=== PATIENT | female | born 1990 | race Caucasian/White ===

== ENCOUNTER 2019-12-26 09:43 | Emergency (ER) | payer SELFPAY ==
[2019-12-26 09:47] VITALS: BP 147/105; PULSE 61; RESP 16; TEMP 36.6; O2SAT 100; BMI 23.3
--- NOTE | 2019-12-26 09:47 | W.ED.URI ---
HPI - URI/Sore Throat General: Chief Complaint: Shortness of Breath/Dyspnea Stated Complaint: BREATHING PROBLEMS Time Seen by Provider: 12/26/19 09:46 Source: patient Mode of arrival: ambulatory Limitations: no limitations History of Present Illness: HPI Narrative: Patient comes in today with concerns of the inhalation of mold and sore throat. Patient states that for the past 2 to 3 days she has had some problems with a sore throat and a cough. Patient is also felt more tired and worn out. Patient thought she may have inhaled some mold while working in old house and planting her garden. Patient also has had some nausea and thinks she may be . Patient appears well. Patient appears in no acute distress. MD elicited complaint: cough and sore throat Associated symptoms: Reports nausea Review of Systems General: Reports: 10 or more systems reviewed and unremarkable except in HPI and below ENMT: Reports: throat pain Resp: Reports: non-productive cough GI: Reports: nausea PFSH ED PFSH: Social History Smoking and tobacco status: never smoked Physical Exam Const: COMMON NORMALS: no apparent distress and oriented x3 GENERAL APPEARANCE: cooperative HENMT: COMMON NORMALS: normocephalic, external ears normal, EAC's normal, TM's normal bilaterally and external nose normal HEAD & SCALP: normal to inspection and normocephalic FACE & SINUS: normal facial exam NOSE: external nose normal GENERAL EAR: hearing not grossly impaired EXTERNAL EAR: Yes external ears normal EXTERNAL AUDITORY CANAL: EAC's normal TYMPANIC MEMBRANE: TM's normal bilaterally MOUTH: oral and palatal mucosa normal THROAT: posterior oropharynx normal Eye: COMMON NORMALS: PERRL and EOMs intact bilaterally PUPIL: Yes PERRL Neck/C-Spine: COMMON NORMALS: full ROM and no lymphadenopathy Lymph: LYMPHATIC: no lymphedema noted Chest: COMMONS NORMALS: inspection of chest normal and palpation of chest normal Resp: COMMON NORMALS: normal respiratory effort and clear to auscultation bilaterally AUSCULTATION: clear to auscultation bilaterally Cardio: COMMON NORMALS: regular rate and regular rhythm RATE: regular rate RHYTHM: regular rhythm GI: COMMON NORMALS: normal to inspection, nondistended, normoactive bowel sounds and non-tender : COMMON NORMALS: Yes no CVA tenderness BLADDER/KIDNEY EXAM: Yes no CVA tenderness Back/Pelvis: COMMON NORMALS: no CVA tenderness and thoracic and lumbar spine normal to inspection Extremity: COMMON NORMALS: normal to inspection GENERAL: No edema Neuro: COMMON NORMALS: oriented x3, moves all extremities and no focal motor deficits Psych: COMMON NORMALS: mental status grossly normal and cooperative Skin: COMMON NORMALS: no rashes or lesions noted GENERAL SKIN EXAM: no rashes or lesions noted Course Vital Signs: Vital signs: Vital Signs Temperature 98 F 12/26/19 09:47 Pulse Rate 65 12/26/19 11:00 Respiratory Rate 16 12/26/19 11:00 Blood Pressure 152/105 12/26/19 11:00 Pulse Oximetry 97 12/26/19 11:00 MDM - URI/Sore Throat MDM Narrative: Medical decision making narrative: Patient comes in today with concerns of sore throat and nausea. Patient was worried that she may be exposed to mold that has caused her to get a respiratory infection and has also been concerned about being . Exam notes of postnasal drip but otherwise normal exam. Differential diagnosis includes influenza, strep pharyngitis, allergic rhinitis, postnasal drip, vasomotor rhinitis, urinary tract infection, . Urinalysis was clear, test was negative, influenza a and strep test were negative. Reviewed exam with patient with recommendations for treatment for postnasal drip with Flonase and Claritin. Patient reports understanding and agreed to plan. Lab Data: Labs: Lab Results 12/26/19 12/26/19 12/26/19 Range/Units 09:05 09:05 09:05 Urine Color Straw (Yellow) Urine Appearance Clear (CLEAR) Urine pH 6 (5-7) Ur Specific Gravit y 1.010 (1.005-1.030) Urine Protein Neg (Negative) Urine Glucose (UA) Norm (Normal) Urine Ketones Negative (Negative) Urine Blood Neg (Negative) Urine Nitrate Negative (Negative) Urine Bilirubin Neg (NEGATIVE) Urine Urobilinogen Norm (Negative) mg/dL Ur Leukocyte Merly ase Negative (Negative) Urine HCG, Qual Negative (Negative) Influenza Type A A g (Negative) POC Influenza B Ag (Negative) Group A Strep Rapi d Negative (Negative) 12/26/19 Range/Units 09:05 Urine Color (Yellow) Urine Appearance (CLEAR) Urine pH (5-7) Ur Specific Gravit y (1.005-1.030) Urine Protein (Negative) Urine Glucose (UA) (Normal) Urine Ketones (Negative) Urine Blood (Negative) Urine Nitrate (Negative) Urine Bilirubin (NEGATIVE) Urine Urobilinogen (Negative) mg/dL Ur Leukocyte Merly ase (Negative) Urine HCG, Qual (Negative) Influenza Type A A g Negative (Negative) POC Influenza B Ag Negative (Negative) Group A Strep Rapi d (Negative) Discharge Plan Discharge Patient Disposition: Home, Self-Care Clinical Impression: Post-nasal drip, Nausea Condition: Stable Prescriptions: New Flonase Allergy Relief 50 mcg/actuation spray,suspension 1 spray INTRANASAL BID PRN (Reason: nasal congestion) Qty: 15.8 RF: 0 loratadine 10 mg tablet 10 mg PO DAILY Qty: 30 RF: 0 Discharge Orders: Discharge Order (Routine); Ordered 12/26/19 Ordered By: Arturo Cardoso Discharge Diet: Usual diet Discharge Activity: Increase activity as tolerated Patient Instructions: Pharyngitis (ED) Activity Restrictions/Additional Instructions: Drink plenty of fluids Medications as directed Repeat test in two weeks as needed Follow-up with primary care in one week Return to ER for high fever or new concerns Coding Level of Care Code ED Chemical Strength Tester for Chg Fwd Exam Comprehensive
[2019-12-26 09:53] VITALS: O2SAT 100
[2019-12-26 10:12] LABS: Add Urine Microscopic? NO
[2019-12-26 10:21] LABS: Urine Appearance Clear (CLEAR); Urine Color Straw (Yellow)
[2019-12-26 10:22] LABS: Bilirubin Urine Neg (NEGATIVE); Blood Urine Neg (Negative); Glucose Urine UA Norm (Normal); Ketones Urine Negative (Negative); Leukocyte Esterase Urine Negative (Negative); Nitrate Urine Negative (Negative); Protein Urine Neg (Negative); Urobilinogen Urine Norm (Negative); pH Urine 6 (5-7)
[2019-12-26 10:23] LABS: Rapid Strep A Test Negative (Negative)
[2019-12-26 10:34] LABS: Influenza A by IFA Negative (Negative); Influenza B by IFA Negative (Negative)
[2019-12-26 11:00] VITALS: BP 152/105; PULSE 65; RESP 16; O2SAT 97
== END 2019-12-26 11:00 | disposition home or self-care (01) ==
LOC: ER 13:13
PROVIDERS: Emergency Provider Nurse Practitioner Family
DX: R09.82 Postnasal drip (principal); R11.0 Nausea
CPT/HCPCS: 12345; 81003; 81025; 87081; 87804; 87880; 99283

== ENCOUNTER 2019-12-27 10:43 | Emergency (ER) | payer SELFPAY ==
[2019-12-27 11:22] VITALS: BP 142/112; PULSE 76; RESP 16; TEMP 37; O2SAT 99; BMI 23.1
--- NOTE | 2019-12-27 11:31 | PC.NURSE ---
During triage the Suicide risk assessment form did not pull. Patient denies hopelessness, increased depression, SI/HI. Patient has c/o insomnia and manic episode lasting about 1 week now.
[2019-12-27 12:20] LABS: Basophils % 0.4 %; Eosinophils # 0.2 10^3/uL (0.0-0.8); Eosinophils % 2.1 %; Hematocrit 41.1 % (37.0-47.0); Hemoglobin 13.8 g/dL (11.5-15.3); Lymphocytes # 2.2 10^3/uL (0.8-4.8); Mean Corpuscular HGB Conc 33.6 g/dL (30.0-36.0); Mean Corpuscular Hemoglobin 30.6 pg (28.0-34.0); Mean Corpuscular Volume 91.1 fL (81-99); Mean Platelet Volume 8.8 fL (7.4-10.4); Monocytes # 0.7 10^3/uL (0.2-0.9); Monocytes % 6.1 %; Neutrophils # 7.9 10^3/uL (1.8-7.7); Neutrophils % 71.2 %; Nucleated Red Blood Cells % 0 %; Platelet Count 380 10^3/cmm (130-400); Red Blood Count 4.51 10^6/uL (4.1-5.3); Red Cell Distribution Width 12.4 % (12.1-15.1)
[2019-12-27 12:31] LABS: HCG, Serum Qual Negative (Negative)
[2019-12-27 12:39] LABS: Alanine Aminotransferase 6 U/L (0-33); Albumin Level 4.4 g/dL (3.5-5.2); Alkaline Phosphatase 66 IU/L (35-105); Aspartate Amino Transferase 20 U/L (0-32); Blood Urea Nitrogen 15 mg/dL (6-20); Calcium 11.2 mg/dL (8.5-10.5); Carbon Dioxide 27 mmol/L (22-29); Chloride 98 mmol/L (98-107); Globulin 3.5 g/dL (1.3-4.6); Glomerular Filtration Rate 83.7 mL/min (90-130); Glucose 141 mg/dL (65-115); Osmolality Calculated 281 mOsm/kg (285-295); Sodium 136 mmol/L (136-145); Total Bilirubin 0.2 mg/dL (0.15-1.2); Total Protein 7.9 g/dL (6.6-8.7)
[2019-12-27 12:49] LABS: Acetaminophen < 5.0 ug/mL (10-30); Alcohol Level < 10 mg/dL (0-10); Salicylate < 0.3 mg/dL (3-10)
[2019-12-27 13:21] LABS: Amphetamines Screen Urine Negative (Negative); Barbiturates Screen Urine Negative (Negative); Benzodiazepines Screen Urine Negative (Negative); Cocaine Screen Urine Negative (Negative); Opiate Screen Urine Negative (Negative); PCP Screen Urine Negative (Negative); THC Screen Urine Negative (Negative)
--- NOTE | 2019-12-27 13:34 | ED_ITS ---
Entered by Ann Keys, acting as scribe for Dec 27, 2019 10:43 HPI - Psych General: Chief Complaint: Psychiatric Symptoms Stated Complaint: MHE Time Seen by Provider: 12/27/19 13:32 Source: patient Mode of arrival: ambulatory Limitations: no limitations History of Present Illness: HPI Narrative: 29 yo Female presents to ED with complaint of not sleeping and garo. Pt states that she hasn't been able to sleep and she thought that was because of the full owens. Pt states that she also had mold in her room and had to clean it which caused her respiratory symptoms. Pt states that she has been manic and has bipolar. Pt states that she started taking Seroquel for her bipolar disorder last night. Pt states that this was prescribed by her doctor in [place], [place]. Pt states that she just moved here and doesn't have a local psychiatrist or counselor yet and she wanted to get checked out to make sure that everything was ok and to try to find out about local doctors. MD complaint: other (manic) Onset (ago): day(s) Duration: constant History of same: Yes Relieving factors: none Exacerbating factors: none Context: new medication(s) Associated psychiatric symptoms: other (garo) Associated symptoms: Reports other (garo) Treatments prior to arrival: none Review of Systems General: Reports: other (negative unless marked) Const: Denies: fever, chills, body aches, fatigue, malaise or diaphoresis Eyes: Denies: change in vision or blurry vision ENMT: Denies: throat pain, painful swallowing, hoarseness, ear pain, ear discharge, Change in hearing or nasal discharge Card: Denies: chest pain, palpitations, irregular heart rhythm, syncope, pre- syncope, shortness of breath on exertion or shortness of breath when lying down Resp: Denies: shortness of breath, productive cough, non-productive cough, wheezing, coughing up blood or chest congestion GI: Denies: abdominal pain, nausea, vomiting, vomiting blood, coffee grounds in vomit, diarrhea, constipation, cramping, blood in stool or black tarry stool : Denies: flank pain, painful urination, urinary frequency, urinary urgency, decreased urine ouput, urinary incontinence or blood in urine Musc: Denies: neck pain, back pain, extremity pain, extremity swelling, joint pain, joint swelling, joint warmth or joint stiffness Skin/Breast: Denies: rash, skin tenderness or yellow skin Neuro: Denies: headache, numbness in extremities, weakness in extremities, changes in sensation, lack of coordination, difficulty walking, dizziness, vertigo or confusion Endo: Denies: excessive thirst, tired all the time, cold intolerance, excessive sweating, flushing or hot flashes Osei/Lymph: Denies: easy bruising, easy bleeding, petechiae or enlarged lymph nodes All/Imm: Denies: hives, throat swelling, tongue swelling, facial swelling or acute wheezing PFSH ED PFSH: Medical History (Updated 12/27/19 @ 13:51 by Harper Santamaria) Bipolar disorder Social History Smoking and tobacco status: never smoked Female Reproductive History: Date of last menstrual period: 12/16/19 Physical Exam Const: COMMON NORMALS: no apparent distress, oriented x3, no limitations, healthy appearing and well nourished EXAM LIMITATIONS: no altered mental status GENERAL APPEARANCE: cooperative, well kempt and well developed ORIENTATION/CONSCIOUSNESS: Yes awake HENMT: COMMON NORMALS: normocephalic, head/scalp atraumatic, hearing grossly normal bilaterally, external ears normal, EAC's normal, external nose normal and moist oral mucous membranes HEAD & SCALP: normal to inspection, normocephalic and atraumatic FACE & SINUS: normal facial exam and face symmetric NOSE: external nose normal and nares normal EXTERNAL EAR: Yes external ears normal EXTERNAL AUDITORY CANAL: EAC's normal MOUTH: oral and palatal mucosa normal and tongue normal Eye: COMMON NORMALS: PERRL, EOMs intact bilaterally, conjunctivae normal and no scleral icterus GENERAL EYE: normal appearance of both eyes and normal light reflex CONJUNCTIVA: Yes conjunctivae normal SCLERA: sclerae normal CORNEA: Yes corneas normal PUPIL: Yes PERRL DIRECT OPHTHALMOSCOPY: Yes normal light reflex Neck/C-Spine: COMMON NORMALS: full ROM, no lymphadenopathy, supple, no meningeal signs and no JVD GENERAL: Yes normal visual inspection and Yes trachea midline CERVICAL SPINE: Yes cervical ROM normal Chest: COMMONS NORMALS: inspection of chest normal and palpation of chest normal Resp: COMMON NORMALS: normal respiratory effort, no retractions, no use of accessory muscles and clear to auscultation bilaterally EFFORT & INSPECTION: Yes able to speak in complete sentences AUSCULTATION: clear to auscultation bilaterally Cardio: COMMON NORMALS: no JVD, regular rate, regular rhythm, S1 normal heart sound, S2 normal heart sound, no gallops, no clicks, no murmurs and no rub JUGULAR VENOUS DISTENTION: no JVD RATE: regular rate RHYTHM: regular rhythm HEART SOUNDS: S1 normal and S2 normal GI: COMMON NORMALS: soft to palpation, non-tender, no hepatosplenomegaly and no masses INSPECTION: Yes normal to inspection PALPATION: Yes soft and Yes no hepatosplenomegaly : COMMON NORMALS: Yes no CVA tenderness BLADDER/KIDNEY EXAM: Yes no CVA tenderness Back/Pelvis: COMMON NORMALS: no CVA tenderness, thoracic and lumbar spine normal to inspection, no thoracic nor lumbar tenderness and thoraco-lumbar ROM normal Extremity: COMMON NORMALS: normal to inspection, full ROM, normal capillary refill, no joint enlargement, no clubbing, cyanosis or edema and no calf tenderness Neuro: COMMON NORMALS: oriented x3, CN's II-XII intact bilaterally, moves all extremities, no focal motor deficits and no sensory deficits noted MENINGEAL SIGNS: Yes no meningeal signs Psych: COMMON NORMALS: mental status grossly normal, thought process normal, cooperative, affect normal, speech normal and activity/motor behavior normal APPEARANCE: Yes well kempt SPEECH: Yes normal speech THOUGHT PROCESS: normal thought process Skin: COMMON NORMALS: no rashes or lesions noted, skin turgor normal, no jaundice, no petechiae and no mottling GENERAL SKIN EXAM: no rashes or lesions noted and turgor normal MDM - Psych MDM Narrative: Medical decision making narrative: The case was reviewed with Dr. Aragon. He recommends the patient stopping Seroquel and should take Haldol 2.5 mg twice daily until she can be seen by behavioral health clinic here in [place]. The patient agrees with this plan. Otherwise I see no sign of acute psychosis, depression, anxiety, or suicidal/homicidal ideation. The patient's calcium is slightly elevated which she states is a problem that she is had in the past. She understands that she will need to get this rechecked. I do not believe hypercalcemia is contributing to any of her symptoms here today. Lab Data: Attestation: I reviewed the patient's lab results. Labs: Lab Results 12/27/19 12/27/19 12/27/19 Range/Units 12:09 12:09 12:09 WBC 11.0 H (4.0-10.0) 10^3/ uL RBC 4.51 (4.1-5.3) 10^6/u L Hgb 13.8 (11.5-15.3) g/dL Hct 41.1 (37.0-47.0) % MCV 91.1 (81-99) fL MCH 30.6 (28.0-34.0) pg MCHC 33.6 (30.0-36.0) g/dL RDW 12.4 (12.1-15.1) % Plt Count 380 (130-400) 10^3/c mm MPV 8.8 (7.4-10.4) fL Neut % (Auto) 71.2 % Lymph % (Auto) 20.0 % Randolph % (Auto) 6.1 % Eos % (Auto) 2.1 % Baso % (Auto) 0.4 % Neut # (Auto) 7.9 H (1.8-7.7) 10^3/u L Lymph # (Auto) 2.2 (0.8-4.8) 10^3/u L Randolph # (Auto) 0.7 (0.2-0.9) 10^3/u L Eos # (Auto) 0.2 (0.0-0.8) 10^3/u L Baso # (Auto) 0.0 (0.0-0.1) 10^3/u L Nucleated RBC % (a uto) 0 % Nucleated RBCs # 0.0 /100WBC Sodium 136 (136-145) mmol/L Potassium 5.0 (3.5-5.1) mmol/L Chloride 98 (98-107) mmol/L Carbon Dioxide 27 (22-29) mmol/L Anion Gap 16.0 (5-19) BUN 15 (6-20) mg/dL Creatinine 0.8 (0.5-0.9) mg/dL GFR Calculation 83.7 L (90-130) mL/min Glucose 141 H (65-115) mg/dL Calculated Osmolal ity 281 L (285-295) mOsm/k g Calcium 11.2 H (8.5-10.5) mg/dL Total Bilirubin 0.2 (0.15-1.2) mg/dL AST 20 (0-32) U/L ALT 6 (0-33) U/L Alkaline Phosphata se 66 (35-105) IU/L Total Protein 7.9 (6.6-8.7) g/dL Albumin 4.4 (3.5-5.2) g/dL Globulin 3.5 (1.3-4.6) g/dL HCG, Qual Negative (Negative) Salicylates < 0.3 L (3-10) mg/dL Urine Opiates Scre en (Negative) ng/mL Acetaminophen < 5.0 L (10-30) ug/mL Ur Barbiturates Sc reen (Negative) ng/mL Ur Phencyclidine S crn (Negative) ng/mL Ur Amphetamines Sc reen (Negative) ng/mL U Benzodiazepines Scrn (Negative) ng/mL Urine Cocaine Scre en (Negative) ng/mL U Marijuana (THC) Screen (Negative) ng/mL Ethyl Alcohol < 10 (0-10) mg/dL 12/27/19 Range/Units 12:50 WBC (4.0-10.0) 10^3/ uL RBC (4.1-5.3) 10^6/u L Hgb (11.5-15.3) g/dL Hct (37.0-47.0) % MCV (81-99) fL MCH (28.0-34.0) pg MCHC (30.0-36.0) g/dL RDW (12.1-15.1) % Plt Count (130-400) 10^3/c mm MPV (7.4-10.4) fL Neut % (Auto) % Lymph % (Auto) % Randolph % (Auto) % Eos % (Auto) % Baso % (Auto) % Neut # (Auto) (1.8-7.7) 10^3/u L Lymph # (Auto) (0.8-4.8) 10^3/u L Randolph # (Auto) (0.2-0.9) 10^3/u L Eos # (Auto) (0.0-0.8) 10^3/u L Baso # (Auto) (0.0-0.1) 10^3/u L Nucleated RBC % (a uto) % Nucleated RBCs # /100WBC Sodium (136-145) mmol/L Potassium (3.5-5.1) mmol/L Chloride (98-107) mmol/L Carbon Dioxide (22-29) mmol/L Anion Gap (5-19) BUN (6-20) mg/dL Creatinine (0.5-0.9) mg/dL GFR Calculation (90-130) mL/min Glucose (65-115) mg/dL Calculated Osmolal ity (285-295) mOsm/k g Calcium (8.5-10.5) mg/dL Total Bilirubin (0.15-1.2) mg/dL AST (0-32) U/L ALT (0-33) U/L Alkaline Phosphata se (35-105) IU/L Total Protein (6.6-8.7) g/dL Albumin (3.5-5.2) g/dL Globulin (1.3-4.6) g/dL HCG, Qual (Negative) Salicylates (3-10) mg/dL Urine Opiates Scre en Negative (Negative) ng/mL Acetaminophen (10-30) ug/mL Ur Barbiturates Sc reen Negative (Negative) ng/mL Ur Phencyclidine S crn Negative (Negative) ng/mL Ur Amphetamines Sc reen Negative (Negative) ng/mL U Benzodiazepines Scrn Negative (Negative) ng/mL Urine Cocaine Scre en Negative (Negative) ng/mL U Marijuana (THC) Screen Negative (Negative) ng/mL Ethyl Alcohol (0-10) mg/dL Discharge Plan Discharge Patient Disposition: Home, Self-Care Clinical Impression: Bipolar disorder Qualifiers: Active/Remission status: currently active Current bipolar episode type: manic Current episode severity: mild Qualified Code(s): F31.11 - Bipolar disorder, current episode manic without psychotic features, mild Condition: Stable Prescriptions: No Action Flonase Allergy Relief 50 mcg/actuation spray,suspension 1 spray INTRANASAL BID PRN (Reason: nasal congestion) Qty: 15.8 RF: 0 loratadine 10 mg tablet 10 mg PO DAILY Qty: 30 RF: 0 Discharge Orders: Discharge Order (Routine); Ordered 12/27/19 Ordered By: Harper Santamaria Referrals: Renetta Donovan DO [Physician] - 1-3 days [facility], [Staff Physician] - 1-3 days Discharge Diet: Advance as tolerated Discharge Activity: Increase activity as tolerated Patient Instructions: Bipolar Disorder (ED) Activity Restrictions/Additional Instructions: Please return to the ER immediately for any of the signs or symptoms listed on your discharge instruction sheets, worsening/changing of your symptoms, you are not getting better as quickly as expected, or for ANY other cause or concerns. Take your medications as I have prescribed. Stop the Seroquel that you were previously given. Be certain in contact [facility] here in [place] or in [place] for an appointment to be seen as soon as possible. Again stop the Seroquel. Take the Haldol that I have prescribed you and be certain to return here if you do develop symptoms of wanting to hurt yourself or kill yourself or do not feel you can handle your manic symptoms. Be certain to follow-up with Dr. Donovan or the primary care physician of your choice to have your calcium rechecked as well. Coding Level of Care Code ED Telegraph Printer Mechanic for Chg Fwd Exam Comprehensive The documentation recorded by the Ludmila walton Carmen, accurately reflects the service I personally performed and the decisions made by , Harper Santamaria Dec 27, 2019 10:43
[2019-12-27 13:54] VITALS: O2SAT 98
[2019-12-27 13:58] VITALS: BP 147/103; PULSE 72; RESP 19; O2SAT 97
== END 2019-12-27 14:04 | disposition home or self-care (01) ==
PROVIDERS: Physician Assistant; Emergency Provider Emergency Medicine
DX: F31.9 Bipolar disorder, unspecified (principal)
CPT/HCPCS: 12345; 36415; 80053; 80307; 84703; 85025; 99282; 99283

== ENCOUNTER 2019-12-29 13:39 | Emergency (ER) | payer SELFPAY ==
[2019-12-29 13:42] VITALS: BP 157/114; PULSE 90; RESP 16; TEMP 36.4; O2SAT 100; BMI 20.5
--- NOTE | 2019-12-29 14:07 | ED_ITS ---
HPI - General Adult General: Chief complaint: General Medical Stated complaint: MHE Time Seen by Provider: 12/29/19 13:52 History of Present Illness: HPI narrative: Patient comes in her complain about sore throat and fever. Says she aches all over. Patient seen here couple days ago diagnosed with bipolar disorder which she had been on Seroquel for that Dr. Aragon evaluated her and started her on Haldol 2.5 mg twice daily. Her gentleman friend that she is with said they been together about a month living in [place] about 70 people and the report is that they do not know how to handle her anymore she is having episodes of hallucinations and not making sense of what she is saying. There is a person here from the [facility] who was 1 of their medical experts that does not have training in medical and said he might fill out some paper states and get her committed.. Patient just moved here from [place] about 4 months ago and she was fine up to about a month ago is what her significant other says denies SI or HI Associated symptoms: Deny chest pain, dyspnea, headache(s), nausea, rash or vomiting Review of Systems Const: Denies: fever, chills or body aches Eyes: Denies: change in vision or blurry vision ENMT: Denies: throat pain or nasal congestion Card: Denies: chest pain or shortness of breath on exertion Resp: Denies: shortness of breath, productive cough or non-productive cough GI: Denies: abdominal pain, nausea or vomiting Musc: Denies: extremity pain Skin/Breast: Denies: rash Neuro: Denies: headache Psych: Reports: mood swings, sleeping less and tactile hallucinations; Denies: anxiety, depression, suicidal ideation or homicidal ideation Osei/Lymph: Denies: easy bruising PFSH ED PFSH: Medical History (Updated 12/27/19 @ 13:51 by Harper Santamaria) Bipolar disorder Social History Smoking and tobacco status: never smoked Female Reproductive History: Date of last menstrual period: 12/09/19 Physical Exam Const: COMMON NORMALS: no apparent distress, average body habitus and oriented x3 HENMT: COMMON NORMALS: normocephalic HEAD & SCALP: normal to inspection and normocephalic FACE & SINUS: normal facial exam Eye: COMMON NORMALS: conjunctivae normal GENERAL EYE: normal appearance of both eyes CONJUNCTIVA: Yes conjunctivae normal Neck/C-Spine: COMMON NORMALS: no JVD Chest: COMMONS NORMALS: inspection of chest normal Resp: COMMON NORMALS: normal respiratory effort and clear to auscultation bilaterally AUSCULTATION: clear to auscultation bilaterally Cardio: COMMON NORMALS: no JVD, regular rate and regular rhythm RATE: regular rate RHYTHM: regular rhythm GI: COMMON NORMALS: normal to inspection, nondistended, normoactive bowel sounds Extremity: COMMON NORMALS: normal to inspection and full ROM Neuro: COMMON NORMALS: oriented x3 Psych: COMMON NORMALS: mental status grossly normal, denies homicidal ideation and denies suicidal ideation Course Vital Signs: Vital signs: Vital Signs Temperature 97.5 F L 12/29/19 13:42 Pulse Rate 60 12/29/19 15:17 Respiratory Rate 16 12/29/19 15:17 Blood Pressure 157/114 12/29/19 13:42 Pulse Oximetry 97 12/29/19 15:17 MDM - General Adult MDM Narrative: Medical decision making narrative: Discussed case with Dr. Sharif and made a call to Narcisa at [facility] for patient for follow-up after discharge here Lab Data: Labs: Lab Results 12/29/19 12/29/19 12/29/19 Range/Units 14:09 14:09 14:09 WBC (4.0-10.0) 10^3/ uL RBC (4.1-5.3) 10^6/u L Hgb (11.5-15.3) g/dL Hct (37.0-47.0) % MCV (81-99) fL MCH (28.0-34.0) pg MCHC (30.0-36.0) g/dL RDW (12.1-15.1) % Plt Count (130-400) 10^3/c mm MPV (7.4-10.4) fL Neut % (Auto) % Lymph % (Auto) % Howard % (Auto) % Eos % (Auto) % Baso % (Auto) % Neut # (Auto) (1.8-7.7) 10^3/u L Lymph # (Auto) (0.8-4.8) 10^3/u L Howard # (Auto) (0.2-0.9) 10^3/u L Eos # (Auto) (0.0-0.8) 10^3/u L Baso # (Auto) (0.0-0.1) 10^3/u L Nucleated RBC % (a uto) % Nucleated RBCs # /100WBC Sodium (136-145) mmol/L Potassium (3.5-5.1) mmol/L Chloride (98-107) mmol/L Carbon Dioxide (22-29) mmol/L Anion Gap (5-19) BUN (6-20) mg/dL Creatinine (0.5-0.9) mg/dL GFR Calculation (90-130) mL/min Glucose (65-115) mg/dL Calculated Osmolal ity (285-295) mOsm/k g Calcium (8.5-10.5) mg/dL Total Bilirubin (0.15-1.2) mg/dL AST (0-32) U/L ALT (0-33) U/L Alkaline Phosphata se (35-105) IU/L Total Protein (6.6-8.7) g/dL Albumin (3.5-5.2) g/dL Globulin (1.3-4.6) g/dL TSH (0.27-4.20) uIU/ mL HCG, Qual Negative (Negative) Urine Color Straw (Yellow) Urine Appearance Clear (CLEAR) Urine pH 7 (5-7) Ur Specific Gravit y 1.005 (1.005-1.030) Urine Protein Neg (Negative) Urine Glucose (UA) Norm (Normal) Urine Ketones Negative (Negative) Urine Blood Neg (Negative) Urine Nitrate Negative (Negative) Urine Bilirubin Neg (NEGATIVE) Urine Urobilinogen Norm (Negative) mg/dL Ur Leukocyte Merly ase Negative (Negative) Salicylates (3-10) mg/dL Urine Opiates Scre en Negative (Negative) ng/mL Acetaminophen (10-30) ug/mL Ur Barbiturates Sc reen Negative (Negative) ng/mL Ur Phencyclidine S crn Negative (Negative) ng/mL Ur Amphetamines Sc reen Negative (Negative) ng/mL U Benzodiazepines Scrn Negative (Negative) ng/mL Urine Cocaine Scre en Negative (Negative) ng/mL U Marijuana (THC) Screen Negative (Negative) ng/mL Ethyl Alcohol (0-10) mg/dL Group A Strep Rapi d (Negative) 12/29/19 12/29/19 12/29/19 Range/Units 14:13 14:13 14:33 WBC 9.8 (4.0-10.0) 10^3/ uL RBC 4.77 (4.1-5.3) 10^6/u L Hgb 14.1 (11.5-15.3) g/dL Hct 41.5 (37.0-47.0) % MCV 87.0 (81-99) fL MCH 29.6 (28.0-34.0) pg MCHC 34.0 (30.0-36.0) g/dL RDW 12.0 L (12.1-15.1) % Plt Count 405 H (130-400) 10^3/c mm MPV 8.9 (7.4-10.4) fL Neut % (Auto) 71.4 % Lymph % (Auto) 18.4 % Howard % (Auto) 7.0 % Eos % (Auto) 2.4 % Baso % (Auto) 0.5 % Neut # (Auto) 7.0 (1.8-7.7) 10^3/u L Lymph # (Auto) 1.8 (0.8-4.8) 10^3/u L Howard # (Auto) 0.7 (0.2-0.9) 10^3/u L Eos # (Auto) 0.2 (0.0-0.8) 10^3/u L Baso # (Auto) 0.1 (0.0-0.1) 10^3/u L Nucleated RBC % (a uto) 0 % Nucleated RBCs # 0.0 /100WBC Sodium 139 (136-145) mmol/L Potassium 3.8 (3.5-5.1) mmol/L Chloride 101 (98-107) mmol/L Carbon Dioxide 27 (22-29) mmol/L Anion Gap 14.8 (5-19) BUN 12 (6-20) mg/dL Creatinine 0.7 (0.5-0.9) mg/dL GFR Calculation 97.6 (90-130) mL/min Glucose 91 (65-115) mg/dL Calculated Osmolal ity 284 L (285-295) mOsm/k g Calcium 10.5 (8.5-10.5) mg/dL Total Bilirubin 0.2 (0.15-1.2) mg/dL AST 26 (0-32) U/L ALT 9 (0-33) U/L Alkaline Phosphata se 72 (35-105) IU/L Total Protein 8.0 (6.6-8.7) g/dL Albumin 4.5 (3.5-5.2) g/dL Globulin 3.5 (1.3-4.6) g/dL TSH 1.56 (0.27-4.20) uIU/ mL HCG, Qual (Negative) Urine Color (Yellow) Urine Appearance (CLEAR) Urine pH (5-7) Ur Specific Gravit y (1.005-1.030) Urine Protein (Negative) Urine Glucose (UA) (Normal) Urine Ketones (Negative) Urine Blood (Negative) Urine Nitrate (Negative) Urine Bilirubin (NEGATIVE) Urine Urobilinogen (Negative) mg/dL Ur Leukocyte Merly ase (Negative) Salicylates < 0.3 L (3-10) mg/dL Urine Opiates Scre en (Negative) ng/mL Acetaminophen < 5.0 L (10-30) ug/mL Ur Barbiturates Sc reen (Negative) ng/mL Ur Phencyclidine S crn (Negative) ng/mL Ur Amphetamines Sc reen (Negative) ng/mL U Benzodiazepines Scrn (Negative) ng/mL Urine Cocaine Scre en (Negative) ng/mL U Marijuana (THC) Screen (Negative) ng/mL Ethyl Alcohol < 10 (0-10) mg/dL Group A Strep Rapi d Negative (Negative) Discharge Plan Discharge Patient Disposition: Home, Self-Care Condition: Stable Prescriptions: No Action Flonase Allergy Relief 50 mcg/actuation spray,suspension 1 spray INTRANASAL BID PRN (Reason: nasal congestion) Qty: 15.8 RF: 0 loratadine 10 mg tablet 10 mg PO DAILY Qty: 30 RF: 0 Discharge Orders: Discharge Order (Routine); Ordered 12/29/19 Ordered By: Malcom Rico Discharge Diet: Usual diet Discharge Activity: Resume usual activity Patient Instructions: Bipolar Disorder (ED) Activity Restrictions/Additional Instructions: Follow-up with medical provider as directed. Take medications as prescribed. Return to the ER or your medical provider if condition worsens. Please read and understand discharge instructions. If any questions ask please. Go straight to [facility] for intake assessment. Discharge Date/Time: 12/29/19 15:17 Coding Level of Care Code ED Invertebrate Paleontologist for [place] Fwd Exam Comprehensive
[2019-12-29 14:19] LABS: Basophils # 0.1 10^3/uL (0.0-0.1); Basophils % 0.5 %; Eosinophils # 0.2 10^3/uL (0.0-0.8); Eosinophils % 2.4 %; Hematocrit 41.5 % (37.0-47.0); Hemoglobin 14.1 g/dL (11.5-15.3); Lymphocytes # 1.8 10^3/uL (0.8-4.8); Lymphocytes % 18.4 %; Mean Corpuscular Hemoglobin 29.6 pg (28.0-34.0); Mean Platelet Volume 8.9 fL (7.4-10.4); Monocytes # 0.7 10^3/uL (0.2-0.9); Neutrophils % 71.4 %; Nucleated Red Blood Cells % 0 %; Platelet Count 405 10^3/cmm (130-400); Red Blood Count 4.77 10^6/uL (4.1-5.3); White Blood Count 9.8 10^3/uL (4.0-10.0)
[2019-12-29 14:19] LABS: Add Urine Microscopic? NO
[2019-12-29 14:24] LABS: HCG Qualitative Urine. Negative (Negative); Urine Color Straw (Yellow)
[2019-12-29 14:25] LABS: Bilirubin Urine Neg (NEGATIVE); Blood Urine Neg (Negative); Glucose Urine UA Norm (Normal); Ketones Urine Negative (Negative); Leukocyte Esterase Urine Negative (Negative); Nitrate Urine Negative (Negative); Protein Urine Neg (Negative); Specific Gravity, Urine 1.005 (1.005-1.030); Urine Appearance Clear (CLEAR); Urobilinogen Urine Norm (Negative); pH Urine 7 (5-7)
[2019-12-29 14:31] LABS: Amphetamines Screen Urine Negative (Negative); Barbiturates Screen Urine Negative (Negative); Benzodiazepines Screen Urine Negative (Negative); Cocaine Screen Urine Negative (Negative); Opiate Screen Urine Negative (Negative); PCP Screen Urine Negative (Negative); THC Screen Urine Negative (Negative)
[2019-12-29 14:36] VITALS: RESP 17
[2019-12-29] MEDS: acetaminophen 500 mg Tablet 1000 MG PO (14:43)
[2019-12-29] MEDS: lidocaine 2% viscous 15 ML, aluminum-mag hydrox-simethicon 30 ML, sucralfate oral liq 1 GM PO (14:44)
[2019-12-29 14:45] LABS: Alanine Aminotransferase 9 U/L (0-33); Albumin Level 4.5 g/dL (3.5-5.2); Alkaline Phosphatase 72 IU/L (35-105); Anion Gap 14.8 (5-19); Aspartate Amino Transferase 26 U/L (0-32); Blood Urea Nitrogen 12 mg/dL (6-20); Calcium 10.5 mg/dL (8.5-10.5); Carbon Dioxide 27 mmol/L (22-29); Chloride 101 mmol/L (98-107); Globulin 3.5 g/dL (1.3-4.6); Glomerular Filtration Rate 97.6 mL/min (90-130); Glucose 91 mg/dL (65-115); Osmolality Calculated 284 mOsm/kg (285-295); Potassium 3.8 mmol/L (3.5-5.1); Sodium 139 mmol/L (136-145); Thyroid Stimulating Hormone 1.56 uIU/mL (0.27-4.20); Total Bilirubin 0.2 mg/dL (0.15-1.2)
[2019-12-29 14:50] LABS: Acetaminophen < 5.0 ug/mL (10-30); Alcohol Level < 10 mg/dL (0-10); Salicylate < 0.3 mg/dL (3-10)
[2019-12-29 15:14] LABS: Rapid Strep A Test Negative (Negative)
[2019-12-29 15:17] VITALS: PULSE 60; RESP 16; O2SAT 97
[2019-12-29 15:52] LABS: Influenza A by IFA Negative (Negative); Influenza B by IFA Negative (Negative)
== END 2019-12-29 15:17 | disposition home or self-care (01) ==
PROVIDERS: Emergency Provider Nurse Practitioner Family
DX: R50.9 Fever, unspecified (principal); J02.9 Acute pharyngitis, unspecified; R44.2 Other hallucinations; F31.9 Bipolar disorder, unspecified
CPT/HCPCS: 12345; 36415; 80053; 80307; 81003; 81025; 84443; 85025; 87081; 87804; 87880; 99283; A9270

== ENCOUNTER 2019-12-29 21:42 | Inpatient (IN) | payer SELFPAY ==
[2019-12-29 21:45] VITALS: BP 171/92; PULSE 73; RESP 18; TEMP 36.8; O2SAT 96; BMI 20.5
--- NOTE | 2019-12-29 22:01 | PC.NURSE ---
Pt brought in by police from [facility]. Pt states her chief complaint is I'm f hungry, wouldn't you be upset too if you were starving . Pt acting erratically, without flow of thoughts. Pt states that she is running for president. Pt denies SI/HI.
--- NOTE | 2019-12-29 22:04 | ED_ITS ---
Entered by Vickie Ramirez, acting as scribe for Deepti Davis MD Documented by User: Deepti Davis MD 12/29/19 23:00 HPI - Psych General: Chief Complaint: Psychiatric Symptoms Stated Complaint: SI Time Seen by Provider: 12/29/19 21:54 Source: patient and RN notes reviewed Mode of arrival: ambulatory Limitations: altered mental status History of Present Illness: HPI Narrative: 29 yo female presents to ED with bizarre behavior. The patient stated she wants water and lots of food - Hebrew if we have it . The patient was in the ER earlier today (see earlier note). She said after she left the ER earlier, things got out of proportion, President Saira called it in, no one else . She said her boyfriend was crying and it was a shit show . She said she was not brought in by an ambulance, it was an emergency vehicle . She denies hallucinations and has no thoughts of self harm. When asked if she had ever been hospitalized, she closed her eyes and swayed, then after about 10 seconds she said no I don't think so . When asked if she had any flu or cold symptoms, she said yes and when she was asked which symptoms she said all of the above . complaint: altered mental status (bizarre behavior) Duration: constant History of same: Yes Relieving factors: none Exacerbating factors: none Associated psychiatric symptoms: racing thoughts and delusions Associated symptoms: Reports delusions and racing thoughts; Deny suicidal ideation Treatments prior to arrival: none Review of Systems General: Reports: 10 or more systems reviewed and unremarkable except in HPI and below Const: Denies: fever or chills Eyes: Denies: change in vision ENMT: Denies: throat pain Card: Denies: chest pain Resp: Denies: shortness of breath GI: Denies: abdominal pain, nausea, vomiting or change in bowel habits : Denies: difficulty urinating Musc: Denies: muscle weakness Skin/Breast: Denies: rash Neuro: Denies: headache Psych: Denies: hopelessness or suicidal ideation Endo: Denies: excessive urination Osei/Lymph: Denies: easy bruising or easy bleeding All/Imm: Denies: hives PFS ED PFSH: Medical History (Updated 12/30/19 @ 00:20 by Felicia Saleem MD) Bipolar disorder Social History Smoking and tobacco status: never smoked Female Reproductive History: Date of last menstrual period: 12/09/19 Physical Exam Const: COMMON NORMALS: no apparent distress, alert and well nourished EXAM LIMITATIONS: altered mental status GENERAL APPEARANCE: disheveled HENMT: COMMON NORMALS: normocephalic, external ears normal and external nose normal HEAD & SCALP: normocephalic NOSE: external nose normal EXTERNAL EAR: Yes external ears normal MOUTH: no trismus THROAT: posterior oropharynx normal Eye: COMMON NORMALS: PERRL, EOMs intact bilaterally and conjunctivae normal CONJUNCTIVA: Yes conjunctivae normal PUPIL: Yes PERRL Neck/C-Spine: COMMON NORMALS: full ROM, no lymphadenopathy, supple and no meningeal signs CERVICAL SPINE: Yes cervical ROM normal Lymph: LYMPHATIC: no lymphadenopathy noted Chest: COMMONS NORMALS: inspection of chest normal Resp: COMMON NORMALS: normal respiratory effort, no retractions, no use of accessory muscles and clear to auscultation bilaterally EFFORT & INSPECTION: Yes able to speak in complete sentences AUSCULTATION: clear to auscultation bilaterally Cardio: COMMON NORMALS: regular rate and regular rhythm RATE: regular rate RHYTHM: regular rhythm GI: COMMON NORMALS: normal to inspection, nondistended, normoactive bowel sounds, soft to palpation, non-tender and no masses INSPECTION: Yes normal to inspection AUSCULTATION: Yes normoactive bowel sounds PALPATION: Yes soft, No guarding and No rigid Back/Pelvis: OTHER: Normal range of motion Extremity: COMMON NORMALS: normal to inspection GENERAL: Yes normal exam except as noted Neuro: COMMON NORMALS: CN's II-XII intact bilaterally SENSORIUM/ORIENTATION: Yes alert MENINGEAL SIGNS: Yes no meningeal signs SPEECH: speech normal Psych: COMMON NORMALS: speech normal APPEARANCE: Yes unkempt, Yes disheveled and Yes bizarre ATTITUDE: Yes bizarre SPEECH: Yes normal speech THOUGHT CONTENT: Yes delusion(s) Skin: COMMON NORMALS: no rashes or lesions noted GENERAL SKIN EXAM: no rashes or lesions noted MDM - Psych MDM Narrative: Medical decision making narrative: Patient had labs drawn earlier today and is medically clear. Her presentation at this visit sounds to be very similar to the earlier 1. While she is not suicidal or homicidal she is having a manic episode with psychosis. She has a court ordered 96-hour hold on her chart. She was picked up by the child development specialist's department and brought here after she returned to her [facility] today apparently. Dr. Aragon was paged unavailable at this time but will call as soon as possible. Patient care turned over to Dr. Saleem. Lab Data: Labs: Lab Results 12/29/19 12/29/19 Range/Units 22:00 23:08 Sodium 137 (136-145) mmol/L Potassium 3.6 (3.5-5.1) mmol/L Chloride 101 (98-107) mmol/L Carbon Dioxide 26 (22-29) mmol/L Anion Gap 13.6 (5-19) BUN 15 (6-20) mg/dL Creatinine 0.7 (0.5-0.9) mg/dL GFR Calculation 97.6 (90-130) mL/min Glucose 134 H (65-115) mg/dL Calculated Osmolal ity 282 L (285-295) mOsm/k g Calcium 10.6 H (8.5-10.5) mg/dL Urine Opiates Scre en Negative (Negative) ng/mL Ur Barbiturates Sc reen Negative (Negative) ng/mL Ur Phencyclidine S crn Negative (Negative) ng/mL Ur Amphetamines Sc reen Negative (Negative) ng/mL U Benzodiazepines Scrn Negative (Negative) ng/mL Urine Cocaine Scre en Negative (Negative) ng/mL U Marijuana (THC) Screen Negative (Negative) ng/mL Ethyl Alcohol < 10 (0-10) mg/dL Discharge Plan Discharge Patient Disposition: Admitted As Inpatient Clinical Impression: Bipolar disorder, Acute psychosis Condition: Stable Coding Level of Care Code ED Pan Pusher for Chg Fwd Exam Comprehensive Documented by User: Felicia Saleem MD 12/30/19 00:21 HPI - Psych General: Chief Complaint: Psychiatric Symptoms Stated Complaint: SI Time Seen by Provider: 12/29/19 21:54 [facility] ED PFSH: Medical History (Updated 12/30/19 @ 00:20 by Felicia Saleem MD) Bipolar disorder Social History Smoking and tobacco status: never smoked MDM - Psych MDM Narrative: Medical decision making narrative: I took patient over from Dr. Davis. Spoke to Dr. Aragon and patient is medically cleared and will admit the psychiatric unit. Lab Data: Labs: Lab Results 12/29/19 12/29/19 Range/Units 22:00 23:08 Sodium 137 (136-145) mmol/L Potassium 3.6 (3.5-5.1) mmol/L Chloride 101 (98-107) mmol/L Carbon Dioxide 26 (22-29) mmol/L Anion Gap 13.6 (5-19) BUN 15 (6-20) mg/dL Creatinine 0.7 (0.5-0.9) mg/dL GFR Calculation 97.6 (90-130) mL/min Glucose 134 H (65-115) mg/dL Calculated Osmolal ity 282 L (285-295) mOsm/k g Calcium 10.6 H (8.5-10.5) mg/dL Urine Opiates Scre en Negative (Negative) ng/mL Ur Barbiturates Sc reen Negative (Negative) ng/mL Ur Phencyclidine S crn Negative (Negative) ng/mL Ur Amphetamines Sc reen Negative (Negative) ng/mL U Benzodiazepines Scrn Negative (Negative) ng/mL Urine Cocaine Scre en Negative (Negative) ng/mL U Marijuana (THC) Screen Negative (Negative) ng/mL Ethyl Alcohol < 10 (0-10) mg/dL Discharge Plan Discharge Patient Disposition: Admitted As Inpatient Clinical Impression: Bipolar disorder, Acute psychosis Condition: Stable Coding Level of Care Code ED Pan Pusher for Chg Fwd Exam Comprehensive The documentation recorded by the James walton Valerie R accurately reflects the service I personally performed and the decisions made by , Deepti Davis MD Dec 29, 2019 21:42
[2019-12-29] MEDS: haloperidol 5 mg Tablet PO (22:24)
[2019-12-29 23:34] LABS: Anion Gap 13.6 (5-19); Blood Urea Nitrogen 15 mg/dL (6-20); Calcium 10.6 mg/dL (8.5-10.5); Carbon Dioxide 26 mmol/L (22-29); Chloride 101 mmol/L (98-107); Glomerular Filtration Rate 97.6 mL/min (90-130); Glucose 134 mg/dL (65-115); Osmolality Calculated 282 mOsm/kg (285-295); Potassium 3.6 mmol/L (3.5-5.1); Sodium 137 mmol/L (136-145)
[2019-12-29 23:55] LABS: Alcohol Level < 10 mg/dL (0-10)
[2019-12-30 00:14] LABS: Amphetamines Screen Urine Negative (Negative); Barbiturates Screen Urine Negative (Negative); Benzodiazepines Screen Urine Negative (Negative); Cocaine Screen Urine Negative (Negative); Opiate Screen Urine Negative (Negative); PCP Screen Urine Negative (Negative); THC Screen Urine Negative (Negative)
[2019-12-30 01:23] VITALS: BP 131/91; PULSE 101; RESP 18; TEMP 36.6; O2SAT 98
[2019-12-30 06:00] VITALS: BP 130/81; PULSE 89; RESP 18; TEMP 37.2; O2SAT 96
[2019-12-30 13:15] LABS: HCG Qualitative Urine. Negative (Negative)
[2019-12-30 14:00] VITALS: BP 140/95; PULSE 79; RESP 20; TEMP 36.7; O2SAT 99
--- NOTE | 2019-12-30 20:28 | P.HP_ITS ---
Providers/Chief Complaint Admitting Physician: Vineet Aragon MD Chief Complaint: SI HPI NPU History of Present Illness Amadou Cartagena is a 29 year old female who announces that she is running for president and intends to beat president Saira. She wants me to donate her campaign fund. The patient's ability to present a coherent history is limited but I gathered that she has been hospitalized 6 or 7 times for bipolar disorder. She says that titration of Seroquel was best for her and she hated being on lithium because of side effects. Review of Systems Narrative: Const: Denies: fever or chills Eyes: Denies: change in vision ENMT: Denies: throat pain Card: Denies: chest pain Resp: Denies: shortness of breath GI: Denies: abdominal pain, nausea, vomiting or change in bowel habits : Denies: difficulty urinating Musc: Denies: muscle weakness Skin/Breast: Denies: rash Neuro: Denies: headache Psych: Denies: hopelessness or suicidal ideation Endo: Denies: excessive urination Osei/Lymph: Denies: easy bruising or easy bleeding All/Imm: Denies: hives Meds NPU Home Medications Medication Instructions Recorded Confirmed Type haloperidol 2.5 mg PO BID 12/29/19 12/30/19 History loratadine [Allergy Relief 10 mg PO DAILY 12/30/19 12/30/19 History (loratadine)] Allergies Allergy/AdvReac Type Severity Reaction Status Date / Time No Known Allergies Allergy Verified 12/26/19 09:53 PFS NPU PFSH: Medical History Bipolar disorder Social History Smoking and tobacco status: never smoked Mental Status Exam MSE Comments: This is a 29-year-old female who presents at her stated age. She is clean and neat. She has an elated mood with mildly blunted affect. She is grandiose and delusional and her speech is slightly pressured. Thoughts appear to be racing and scattered, with flight of ideas. There is no suicidal or homicidal ideation. Cognitive function is impaired by her obvious garo. Vitals/I&O/Wt Last Vital Signs Temp 98.0 F 12/30/19 14:00 Pulse 79 12/30/19 14:00 Resp 20 H 12/30/19 14:00 BP 140/95 12/30/19 14:00 Pulse Ox 99 12/30/19 14:00 Weight last 48 hrs Weight 120 lb Physical Exam Narrative: EXAM NARRATIVE: Const: COMMON NORMALS: no apparent distress, alert and well nourished EXAM LIMITATIONS: altered mental status GENERAL APPEARANCE: disheveled HENMT: COMMON NORMALS: normocephalic, external ears normal and external nose normal HEAD & SCALP: normocephalic NOSE: external nose normal EXTERNAL EAR: Yes external ears normal MOUTH: no trismus THROAT: posterior oropharynx normal Eye: COMMON NORMALS: PERRL, EOMs intact bilaterally and conjunctivae normal CONJUNCTIVA: Yes conjunctivae normal PUPIL: Yes PERRL Neck/C-Spine: COMMON NORMALS: full ROM, no lymphadenopathy, supple and no meningeal signs CERVICAL SPINE: Yes cervical ROM normal Lymph: LYMPHATIC: no lymphadenopathy noted Chest: COMMONS NORMALS: inspection of chest normal Resp: COMMON NORMALS: normal respiratory effort, no retractions, no use of accessory muscles and clear to auscultation bilaterally EFFORT & INSPECTION: Yes able to speak in complete sentences AUSCULTATION: clear to auscultation bilaterally Cardio: COMMON NORMALS: regular rate and regular rhythm RATE: regular rate RHYTHM: regular rhythm GI: COMMON NORMALS: normal to inspection, nondistended, normoactive bowel sounds, soft to palpation, non-tender and no masses INSPECTION: Yes normal to inspection AUSCULTATION: Yes normoactive bowel sounds PALPATION: Yes soft, No guarding and No rigid Back/Pelvis: OTHER: Normal range of motion Extremity: COMMON NORMALS: normal to inspection GENERAL: Yes normal exam except as noted Neuro: COMMON NORMALS: CN's II-XII intact bilaterally SENSORIUM/ORIENTATION: Yes alert MENINGEAL SIGNS: Yes no meningeal signs SPEECH: speech normal Psych: COMMON NORMALS: speech normal APPEARANCE: Yes unkempt, Yes dish eveled and Yes bizarre ATTITUDE: Yes bizarre SPEECH: Yes normal speech THOUGHT CONTENT: Yes delusion(s) Skin: COMMON NORMALS: no rashes or lesions noted GENERAL SKIN EXAM: no rashes or lesions noted Data NPU : 12/29/19 23:08 A&P Assessment and plan (1) Bipolar disorder: The patient will be on quetiapine, which she says helped her during her hospitalizations. She thinks she might be but her hCG is negative. Nonetheless I reviewed the FDA.gov memorandum on with quetiapine and there does not appear to be any data suggesting risks to human fetuses. Psychosocial intervention is indicated and a follow-up care plan will have to be established. The patient will be involved in [facility]. Status: Acute Qualifiers: Active/Remission status: currently active Current bipolar episode type: manic Current episode severity: moderate Qualified Code(s): F31.12 - Bipolar disorder, current episode manic without psychotic features, moderate Code(s): F31.9 - Bipolar disorder, unspecified Involuntary Hold Information 96 Hour Hold: 96 Hour Involuntary Admission: Yes 96 Hour Hold Ending Date: 01/05/20 96 Hour Hold Ending Time: 22:45 Attestations NPU Medical Necessity Statement*: I anticipate 5 to 7 midnights midnights' additional stay . Time Spent in Patient Care: Greater than 35 minutes (>than 50% of time spent in counselling and/or direct pt care on unit) . Coding Level of Care Code Acute Financial Auditor for Liliam Storm Diagnoses Bipolar disorder F31.12 Active/Remission status: currently active Current bipolar episode type: manic Current episode severity: moderate
[2019-12-30 21:27] VITALS: BP 137/101; PULSE 89; RESP 19; TEMP 36.7; O2SAT 98
[2019-12-30] MEDS: ibuprofen 600 mg Tablet PO (23:34)
--- NOTE | 2019-12-30 23:35 | PC.NURSE ---
Pt given motrin for c/o bilateral leg pain.
[2019-12-31] MEDS: trazodone 50 mg Tablet PO ×2 (00:10→20:46)
--- NOTE | 2019-12-31 00:11 | PC.NURSE ---
Pt given trazodone per pt request
[2019-12-31 06:00] VITALS: BP 139/90; PULSE 86; RESP 18; TEMP 36.6; O2SAT 99
[2019-12-31] MEDS: loratadine 10 mg Tablet PO (08:17)
[2019-12-31] MEDS: quetiapine 100 mg Tablet PO ×2 (08:17→18:17)
[2019-12-31] MEDS: OLANZapine ODT 5 MG TABLET PO (08:18)
--- NOTE | 2019-12-31 08:18 | PC.NURSE ---
PRN ZYPREXA ZYDIS ZYPREXA ZYDIS 5MG PO PER PT C/O AGITATION/ANXIETY. WILL CONTINUE TO MONITOR FOR MEDICATION EFFECTIVENESS.
--- NOTE | 2019-12-31 09:20 | PC.NURSE ---
PRN ZYPREXA ZYDIS FOLLOW UP MEDICATION EFFECTIVE. NO FURTHER C/O AGITATION/ANXIETY.
[2019-12-31] MEDS: cetylpyridinium Lozenge 1 EACH MUCOUS MEM ×3 (12:32→23:55)
[2019-12-31 14:00] VITALS: BP 116/80; PULSE 97; RESP 20; TEMP 36.6; O2SAT 98
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
[2019-12-31] MEDS: ibuprofen 600 mg Tablet PO (18:19)
[2019-12-31 20:01] VITALS: BP 121/79; PULSE 106; RESP 19; TEMP 36.8; O2SAT 99
--- NOTE | 2019-12-31 20:47 | PC.NURSE ---
trazodone given at this time to aide with sleep.
[2020-01-01] MEDS: ibuprofen 600 mg Tablet PO ×4 (00:31→20:49)
--- NOTE | 2020-01-01 00:32 | PC.NURSE ---
pt given ibuprofen for generalized body aches
[2020-01-01] MEDS: cetylpyridinium Lozenge 1 EACH MUCOUS MEM ×7 (03:04→23:44)
[2020-01-01 06:00] VITALS: BP 133/92; PULSE 92; RESP 19; TEMP 36.6; O2SAT 100
[2020-01-01] MEDS: loratadine 10 mg Tablet PO (08:10)
[2020-01-01] MEDS: docusate sodium 100 mg Capsule PO (08:35)
[2020-01-01 14:00] VITALS: BP 135/92; PULSE 94; RESP 19
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
[2020-01-01] MEDS: quetiapine 100 mg Tablet 200 MG PO (20:48)
[2020-01-01 22:00] VITALS: BP 128/84; PULSE 82; RESP 15; TEMP 36.5; O2SAT 100
[2020-01-01] MEDS: LORazepam 2 mg Tablet PO (23:19)
[2020-01-02] MEDS: ibuprofen 600 mg Tablet PO ×2 (04:48→08:46)
--- NOTE | 2020-01-02 04:54 | PC.NURSE ---
pt c/o leg pain, requested motrin 600mg po given.
[2020-01-02 05:36] VITALS: BP 119/84; PULSE 110; RESP 19; TEMP 36.9; O2SAT 98
[2020-01-02] MEDS: docusate sodium 100 mg Capsule PO (08:00)
[2020-01-02] MEDS: loratadine 10 mg Tablet PO (08:00)
[2020-01-02] MEDS: cetylpyridinium Lozenge 1 EACH MUCOUS MEM ×2 (08:00→12:34)
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
[2020-01-02 13:42] VITALS: BP 119/84; PULSE 110; RESP 19; TEMP 36.9; O2SAT 98
== END 2020-01-02 14:55 | disposition home or self-care (01) | DRG 885 ==
LOC: ER 12-30 00:20 → NP 12-30 00:55
PROVIDERS: Emergency Medicine; Admitting Provider Psychiatry & Neurology Psychiatry; Emergency Provider Emergency Medicine; Visit Provider Psychiatry & Neurology Psychiatry
DX: F31.12 Bipolar disorder, current episode manic without psychotic features, moderate (principal); R45.851 Suicidal ideations; Z79.899 Other long term (current) drug therapy
CPT/HCPCS: 12345; 36415; 80048; 80307; 81025; 99284